=== PATIENT | female | born 1945 | race Caucasian/White ===

== ENCOUNTER 2017-03-15 07:46 | Day surgery (SDC) | payer MEDICARE, OTHER ==
[~2017-03-15] VITALS: Ht 152.4 cm; Wt 94.8 kg
[2017-03-15 09:04] LABS: BASOPHILS 0.4 % (0-2); EOSINOPHILS 1.9 % (0-7); HEMATOCRIT 40.1 % (36.0-48.0); HEMOGLOBIN 12.2 g/dL (12-16); IMMATURE GRANULOCYTES 0.3 % (0-5); LYMPHOCYTES 18.4 % (15-50); MCH 30.3 pg (26.0-34.0); MCHC 30.4 g/dL (31.0-37.0); MCV 99.8 fL (80.0-100.0); MONOCYTES 14.2 % (2-11); NEUTROPHILS 64.8 % (40-80); PLATELET COUNT 295 10x3/uL (130-400); RBC 4.02 10x6/uL (4.00-5.40); WBC 8.9 10x3/uL (4.8-10.8)
[2017-03-15 09:14] LABS: INR 1.26 (0.85-1.17); PROTIME 15.7 SECONDS (11.6-15.0)
[2017-03-15 09:21] LABS: ANION GAP 14.6 mmol/L (8-16); CALCIUM 9.5 mg/dL (8.5-10.1); CARBON DIOXIDE 27.7 mmol/L (21.0-32.0); CREATININE - SERUM 3.1 mg/dL (0.6-1.3); POTASSIUM - SERUM 3.3 mmol/L (3.5-5.1)
[2017-03-15] MEDS ORDERED: GABAPENTIN100 MG PO ×2 (14:03→14:04)
[2017-03-15] MEDS ORDERED: BUMEX 1 MG TAB1 MG PO (14:04)
[2017-03-15] MEDS ORDERED: ZYLOPRIM100 MG PO (14:04)
[2017-03-15] MEDS ORDERED: ALDACTONE50 MG PO (14:05)
[2017-03-15] MEDS ORDERED: LEVOTHYROXINE100 MCG PO (14:05)
[2017-03-15] MEDS ORDERED: PROTONIX20 MG PO (14:07)
[2017-03-15] MEDS ORDERED: LASIX80 MG PO (14:07)
[2017-03-15] MEDS ORDERED: PLAVIX75 MG PO (14:07)
[2017-03-15] MEDS ORDERED: PRAVASTATIN SOD10 MG PO (14:08)
[2017-03-15 14:12] VITALS: Ht 152.4 cm; Wt 94.8 kg
--- NOTE | 2017-03-15 22:37 | NUR ---
2231 - ATTEMPTED TO CALL REPORT TO TRANSPORT PT. "RIVKA" ANSWERED PHONE, STATED THAT THERE IS "NO WAY" THE NURSE FOR HER ROOM WAS ABLE TO TAKE REPORT, AND THAT NO ONE ELSE IS ABLE TO TAKE REPORT. STATED SHE WILL ADVISE WHEN SOMEONE IS AVAILABLE TO RECEIVE REPORT AND PT.
--- NOTE | 2017-03-15 23:28 | NUR ---
RECIEVED TO ROOM 2101 FROM O.R. PT A&O. O2 AT 6 LITER VIA OXIMIZER. RESPERATIONS EVEN. IV TO RIGHT FOREARM SL. SITE CLEAN AND DRY. LEFT ARM IN SLING, DRSG TO LEFT ARM FROM FISTULA CREATION CREATION C/D/I. REPOSITIONED IN BED FOR COMFORT. BED LOW, CL IN REACH. RECLINER CHAIR TAKEN TO ROOM FOR , NO OTHER NEEDS, AT THIS TIME.
--- NOTE | 2017-03-15 23:39 | NUR ---
PT RESTING WELL WITHOUT C/O OR DISTRESS NOTED. NO CHANGES NOTED IN ASSESSMENT. CALL LIGHT WITHIN REACH. WILL CONT TO MONITOR.
[2017-03-16 00:59] VITALS: BP 121/62
--- NOTE | 2017-03-16 01:51 | NUR ---
UP WITH ASSIST TO BSC. EXTRA PILLOWS GIVEN TO FOR COMFORT.
--- NOTE | 2017-03-16 07:10 | NUR ---
PT SITTING UP IN BED C/O OXIMIZER ON, PT IS SAT AT 98% ON 6L OXIMIZER. TURNED PT DOWN TO 5L, PT IS NORMALLY ON 2L NC AT HOME. WILL CONT TO MONITOR. AT BEDSIDE
--- NOTE | 2017-03-16 07:35 | NUR ---
PAGED DELMER TO SEE ABOUT RI HOME.
--- NOTE | 2017-03-16 07:41 | NUR ---
PT IS WEANED DOWN TO 2L NC SATS ARE 100%
[2017-03-16 08:35] VITALS: BP 138/63
--- NOTE | 2017-03-16 09:29 | NUR ---
WENT OVER DC INSTRUCTIONS WITH PT PT VERBALIZES UNDERSTANDING. DC PIV WITH CATH TIP INTACT. HELPED PT GET DRESSED. GIVEN PT SCRIPT FOR NORCO. WHEELED PT DOWNSTAIRS. PICKED HER UP AND PT IS HOOKED UP TO HOME O2
== END 2017-03-16 09:35 | disposition home or self-care (01) ==
LOC: D.OPS 07:46 → D.M2 22:54 → D.OPS 03-16 09:35
PROVIDERS: Surgery
DX: N18.6 End stage renal disease (principal); Z99.2 Dependence on renal dialysis; Z01.812 Encounter for preprocedural laboratory examination

== ENCOUNTER 2017-03-21 04:12 | Inpatient (IN) | payer MEDICARE, OTHER ==
[~2017-03-21] VITALS: Ht 152.4 cm; Wt 83.9 kg
--- NOTE | ~2017-03-21 | DS ---
PATIENT:ALMA SHELDON :43 MEDICAL RECORD: [id number] DISCHARGE SUMMARY ADMISSION DATE: 03/21/17 DISCHARGE DATE: 03/22/17 HOSPITAL COURSE: A 71-year-old female admitted with pulmonary edema, fever, loose stools, nausea and emesis. She wanted to go home yesterday, but is insisting on going home today and we will have to change her Zosyn over to Augmentin and her IV Flagyl with a p.o. Flagyl. We will continue vancomycin on her dialysis days as well. I am even have to replace her potassium. Her is not here and we may end up changing our minds depending on Alma. All review of systems are negative. She is insistent that she is feeling fine and at baseline. Blood pressure is 132/72, 72 heart rate, 18 respiratory rate. She is afebrile now with a temperature of 98.4. Nurses' last blood pressure was 120/53. She is alert and oriented times 3. Normocephalic with nasal cannula O2. Chest is regular rhythm. Lungs are grossly clear. Abdomen is nontender. Her leg wounds are stable. She has right IJ tunneled catheter and radiocephalic fistla with no significant swelling or erythema. Lab is consistent with ESRD, although her potassium is 2.9. We will replace her potassium today and we did discuss increasing the potassium in her diet. She does need another dose of vancomycin and we will get a gram on dialysis for the next week until we reevaluate her and she is on Saturday and dialysis. I will be seeing her this coming of next week. She is to return to the hospital for any problems. Her home medications are the same except we have added Augmentin 500 twice a day for 6 days, Flagyl 250 t.i.d. She will receive a gram of vancomycin and Flagyl for 6 days. Her home medication dose of levothyroxine remains the same as well as her Neurontin and her other home medications which also include Protonix. Continue with renal diet and fluid restriction except for potassium, which will follow. Follow up with [facility] dialysis and return to the hospital for any reasons. More than 30 minutes was spent with the dictation, 42 actually. TRANSINT:[id number] Voice Confirmation ID: [id number] DOCUMENT ID: [id number] KELSEY LARA MD CC: [id number] DICTATION DATE: 03/22/17 0757 [facility]: 03/23/17 0042 DIS IN 03/22/17 [place] [id number] [place] [id number]
[~2017-03-21 04:12] MED LIST: ALDACTONE50 MG PO; BUMEX 1 MG TAB1 MG PO; GABAPENTIN100 MG PO; LASIX80 MG PO; LEVOTHYROXINE100 MCG PO; PLAVIX75 MG PO; PRAVASTATIN SOD10 MG PO; PROTONIX20 MG PO; ZYLOPRIM100 MG PO
--- NOTE | 2017-03-21 06:45 | NUR ---
RECEIVED VIA AMBULANCE TO ROOM. ON 2L PER NC. SALINE LOCK SEEN TO RIGHT HAND. NEW AVF SEEN WITH DRY INTACT DRESSINGS TO LEFT UPPER ARM AND LEFT WRIST AREA. DENIES NEEDS AT PRESENT TIME, WILL ADMIT. BED ALARM IS SET.
[2017-03-21 07:41] VITALS: BP 139/62; BMI 36.2
[2017-03-21 07:46] VITALS: BP 139/62; BMI 36.2
[2017-03-21 08:00] VITALS: BP 139/62
--- NOTE | 2017-03-21 09:37 | NUR ---
TO DIALYSIS VIA BED.
[2017-03-21 13:13] VITALS: Ht 152.4 cm; Wt 83.9 kg
--- NOTE | 2017-03-21 13:57 | NUR ---
RETURNS FROM DIALYSIS, ALL SHE WANTS IS HOT TEA, NOTHING TO EAT. FAMILY AT BEDSIDE.
--- NOTE | 2017-03-21 14:03 | NUR ---
HD TREATMENT COMPLETED, NET FLUID REMOVAL OF 3000ML, OTHER THAN SOME HAND CRAMPING AND NAUSEA, TOLERATED OK. BLOOD RETURNED, LINES FLUSHED, HEPARIN DWELLING.
[2017-03-21 16:36] VITALS: BP 99/48
[2017-03-21 19:00] VITALS: BP 147/54
--- NOTE | 2017-03-21 19:52 | NUR ---
ENGINEER RF DEPLOYMENT BED SIDE, PT INCONTINENT OF BOWEL.
--- NOTE | 2017-03-21 20:01 | NUR ---
SPOKE WITH NURSE FROM [facility], UP DATE GIVEN WITH PT APPROVAL.
[2017-03-22] VITALS: BP 114/48
--- NOTE | 2017-03-22 01:00 | NUR ---
CALL LIGHT IN REACH, WILL CONTINUE WITH PLAN OF CARE.
[2017-03-22 04:00] VITALS: BP 120/53
[2017-03-22 05:56] LABS: BASOPHILS 0.9 % (0-2); EOSINOPHILS 2.2 % (0-7); HEMATOCRIT 34.4 % (36.0-48.0); HEMOGLOBIN 10.3 g/dL (12-16); IMMATURE GRANULOCYTES 0.4 % (0-5); LYMPHOCYTES 23.5 % (15-50); MCH 30.7 pg (26.0-34.0); MCHC 29.9 g/dL (31.0-37.0); MCV 102.4 fL (80.0-100.0); MEAN PLATELET VOLUME 10.8 fL (7.4-10.4); MONOCYTES 15.8 % (2-11); NEUTROPHILS 57.2 % (40-80); RBC 3.36 10x6/uL (4.00-5.40); RDW 17.6 % (11.5-14.5)
[2017-03-22 05:58] LABS: PLATELET COUNT 234 10x3/uL (130-400)
[2017-03-22 07:35] LABS: ANION GAP 13.8 mmol/L (8-16); CALCIUM 8.2 mg/dL (8.5-10.1); CARBON DIOXIDE 26.1 mmol/L (21.0-32.0); CREATININE - SERUM 2.7 mg/dL (0.6-1.3); PHOSPHOROUS 3.5 mg/dL (2.5-4.9); VANCOMYCIN - RANDOM 5.2 ug/mL (10.0-20.0)
[2017-03-22 07:41] LABS: POTASSIUM - SERUM 2.9 mmol/L (3.5-5.1)
--- NOTE | 2017-03-22 07:50 | NUR ---
0745-LAB TO CALL WITH CRITICAL POTASSIUM 2.9. CALL PLACED TO RENAL.
[2017-03-22 08:11] VITALS: BP 111/47
[2017-03-22] MEDS ORDERED: AUGMENTIN 500-11 TA1 PO (09:26)
[2017-03-22] MEDS ORDERED: FLAGYL250 MG PO (09:26)
--- NOTE | 2017-03-22 10:08 | NUR ---
Patient Name: DYLAN SHELDON Admission Status: Elective Accout number: [id number] Admission Date: 03-21-2017 : 1945 Admission Diagnosis: Attending: MICHAEL Current LOS: 1 Anticipated DC Date: 03-22-2017 Planned Disposition: Home with Home Health Primary Insurance: MEDICARE A & B PLANNED EXTERNAL PROVIDER: [facility] Discharge Planning Comments: * Is the patient Alert and Oriented? Yes 0 * How many steps to enter\exit or inside your home? NONE 0 * PCP DR. CUETO IN [place] 0 * Pharmacy [facility] [place] 0 * Preadmission Environment Home with Family 0 * ADLs Independent 0 * Equipment Nebulizer Oxygen Walker Wheelchair 0 * Other Equipment HOME AND PORTABLE OXYGEN [facility] - MEDICAL EQUIPMENT PROVIDER PREFERENCE 0 * List name and contact numbers for known caregivers / representatives who currently or will assist patient after discharge: MARITZA SHELDON, SPOUSE, 0 * Community resources currently utilized Home Health Other 0 * Please name any agencies selected above. [facility], [facility], T/T/S, 1030AM, [facility] 0 * Additional services required to return to the preadmission environment? No 0 * Can the patient safely return to the preadmission environment? Yes 0 * Has this patient been hospitalized within the prior 30 days at any hospital? No 0 CM MET WITH PT IN ROOM TO DISCUSS DISCHARGE PLANNING AND NEEDS. PT REPORTS LIVING AT HOME INDEPENDENTLY WITH HER SPOUSE. PT HAS WALKER THAT SHE USES, A WHEELCHAIR THAT SHE DOES NOT USE, OXYGEN THAT SHE USES NEEDED AND A NEBULIZER FROM [facility], [place]. PT HAS [facility] AT HOME. PT HAS OUTPATIENT DIALYSIS ON T/T/S SCHEDULE, 1030AM, [facility]. CM DISCUSSED AVAILABILITY OF HOME HEALTH, REHAB SERVICES AND MEDICAL EQUIPMENT. PT DENIES DISCHARGE NEEDS, REPORTS HER [facility] WILL PICK HER UP FOR DISCHARGE HOME TODAY. IMPORTANT MESSAGE FROM MEDICARE PROVIDED AND EXPLAINED. CM CALLED [employer], , SPOKE TO [place] FOR RESUMPTION FOR HOME HEALTH, FAXED HOSPITAL STAY INFORMATION AND DISCHARGE INFORMATION TO [facility] AT [phone]. Ios Architect: Dong Doty
--- NOTE | 2017-03-22 11:51 | NUR ---
SALINE LOCK TO RIGHT HAND REMOVED WITH CATH TIP INTACT. WILL BE DISCHARGED PAST LUNCH. WILL REVIEW PAPERWORK AT THAT TIME.
--- NOTE | 2017-03-22 12:53 | NUR ---
VERBAL AND WRITTEN INSTRUCTIONS GIVEN TO PATIENT. DISCHARGED HOME VIA WHEELCHAIR.
== END 2017-03-22 12:59 | disposition home health service (06) | DRG 314 ==
LOC: D.MS 04:12 → D.M2 06:37
PROVIDERS: ADMIT Internal Medicine Nephrology
PROC: 5A1D60Z (ICD-10-PCS; principal; 2017-03-21)
DX: T82.7XXA Infection and inflammatory reaction due to other cardiac and vascular devices, implants and grafts, initial encounter (principal); N18.6 End stage renal disease; S81.802A Unspecified open wound, left lower leg, initial encounter; S81.801A Unspecified open wound, right lower leg, initial encounter; X58.XXXA Exposure to other specified factors, initial encounter; E11.22 Type 2 diabetes mellitus with diabetic chronic kidney disease; E11.40 Type 2 diabetes mellitus with diabetic neuropathy, unspecified; Z99.2 Dependence on renal dialysis; D63.1 Anemia in chronic kidney disease; J44.9 Chronic obstructive pulmonary disease, unspecified; E83.39 Other disorders of phosphorus metabolism; E87.6 Hypokalemia; E03.9 Hypothyroidism, unspecified

== ENCOUNTER 2017-03-29 08:35 | Day surgery (SDC) | payer MEDICARE, OTHER ==
[~2017-03-29] VITALS: Ht 152.4 cm; Wt 94.8 kg
[~2017-03-29 08:35] MED LIST changes: +AUGMENTIN 500-11 TA1 PO; +FLAGYL250 MG PO
[2017-03-29 10:07] LABS: BASOPHILS 0.4 % (0-2); EOSINOPHILS 1.5 % (0-7); HEMOGLOBIN 11.9 g/dL (12-16); IMMATURE GRANULOCYTES 0.6 % (0-5); LYMPHOCYTES 21.9 % (15-50); MCH 30.7 pg (26.0-34.0); MCHC 30.5 g/dL (31.0-37.0); MCV 100.5 fL (80.0-100.0); MEAN PLATELET VOLUME 11.1 fL (7.4-10.4); MONOCYTES 14.9 % (2-11); NEUTROPHILS 60.7 % (40-80); RBC 3.88 10x6/uL (4.00-5.40); RDW 17.3 % (11.5-14.5); WBC 9.1 10x3/uL (4.8-10.8)
[2017-03-29 10:08] LABS: PLATELET COUNT 318 10x3/uL (130-400)
[2017-03-29 10:18] LABS: ANION GAP 11.8 mmol/L (8-16); CALCIUM 8.8 mg/dL (8.5-10.1); CARBON DIOXIDE 27.4 mmol/L (21.0-32.0); CREATININE - SERUM 2.4 mg/dL (0.6-1.3); INR 1.31 (0.85-1.17); POTASSIUM - SERUM 3.2 mmol/L (3.5-5.1); PROTIME 16.2 SECONDS (11.6-15.0)
[2017-03-29 10:19] LABS: APTT 40.9 SECONDS (22.8-39.4)
[2017-03-29] MEDS ORDERED: ZOVIRAX400 MG PO (13:16)
[2017-03-29] MEDS ORDERED: COREG6.25 MG PO (13:19)
[2017-03-29] MEDS ORDERED: ISOSORBIDE MONO30 M1 PO (13:20)
[2017-03-29 13:31] VITALS: BP 137/61; Ht 152.4 cm; Wt 94.8 kg
--- NOTE | 2017-03-29 14:33 | NUR ---
0845-RECD TO OPS, PLACED IN WAITING ROOM. SURGERY SCHEDULED FOR 1400 AND NO ROOMS AVAILABLE AT THIS TIME. 1000-TO ROOM 2504. PATIENT STATES JUST GOT THE SHINGLES 2 DAYS AGO. INFECTION CONTROL NURSE NOTIFIED AND PATIENT PLACED IN CONTACT ISOLATION. DR STEELE AND SURGERY NOTIFIED. 1045-INFECTION CONTROL NURSE, YESY OTERO RN HERE. RECOMMENDS [employer] PRECAUT[employer]. SECURITY SYSTEMS INSTALLER CONTACTED FOR NEGATIVE PRESSURE ROOM. NONE AVAILABLE AT PRESENT. 1330-ROOM 2101 AVAILABLE, STATES CAN GO THERE POST-OP.
[2017-03-29] MEDS ORDERED: PLAVIX75 MG PO (18:41)
[2017-03-29] MEDS ORDERED: DOXYCYCLINE HY100 M2 PO (18:42)
[2017-03-29] MEDS ORDERED: MUPIROCIN22 GM TOPICAL (18:43)
[2017-03-29] MEDS ORDERED: HYDROCODON-ACE1 EAC7 PO (18:44)
--- NOTE | 2017-03-29 19:54 | NUR ---
PT RECEIVED TO FLOOR VIA BED AWAKE, ALERT, ORIENTED, AT BEDSIDE. PT DENIES PAIN, NAUSEA, DIZZINESS, POST V/S WNL. D/C ORDERS REVIEWED WITH PT AND , QUESTIONS ANSWERED. PT TAKEN VIA WHEELCHAIR TO FRONT DOOR.
== END 2017-03-29 20:02 | disposition home or self-care (01) ==
LOC: D.OPS 08:35 → D.M2 19:00 → D.OPS 20:02
PROVIDERS: Surgery
DX: T82.868A Thrombosis due to vascular prosthetic devices, implants and grafts, initial encounter (principal); T82.858A Stenosis of other vascular prosthetic devices, implants and grafts, initial encounter; T81.31XA Disruption of external operation (surgical) wound, not elsewhere classified, initial encounter; T81.4XXA Infection following a procedure, initial encounter; N18.6 End stage renal disease; Z99.2 Dependence on renal dialysis; D63.1 Anemia in chronic kidney disease; R53.81 Other malaise; B02.9 Zoster without complications

== ENCOUNTER 2017-04-12 08:16 | Day surgery (SDC) | payer MEDICARE, OTHER ==
[~2017-04-12] VITALS: Ht 152.4 cm; Wt 94.8 kg
[~2017-04-12 08:16] MED LIST changes: +COREG6.25 MG PO; +DOXYCYCLINE HY100 M2 PO; +HYDROCODON-ACE1 EAC7 PO; +ISOSORBIDE MONO30 M1 PO; +MUPIROCIN22 GM TOPICAL; +ZOVIRAX400 MG PO
[2017-04-12] MEDS ORDERED: NOVOLIN 70/30 110 ML SC (12:31)
[2017-04-12] MEDS ORDERED: RENAGEL400 MG PO (12:32)
[2017-04-12] MEDS ORDERED: FISH OIL 1,0001 CA1 PO (12:33)
[2017-04-12 12:40] VITALS: Ht 152.4 cm; Wt 94.8 kg
[2017-04-12 12:54] LABS: BASOPHILS 0.8 % (0-2); EOSINOPHILS 3.1 % (0-7); HEMATOCRIT 40.1 % (36.0-48.0); HEMOGLOBIN 12.3 g/dL (12-16); IMMATURE GRANULOCYTES 0.2 % (0-5); LYMPHOCYTES 28.9 % (15-50); MCH 31.4 pg (26.0-34.0); MCHC 30.7 g/dL (31.0-37.0); MCV 102.3 fL (80.0-100.0); MEAN PLATELET VOLUME 10.3 fL (7.4-10.4); MONOCYTES 15.1 % (2-11); NEUTROPHILS 51.9 % (40-80); RBC 3.92 10x6/uL (4.00-5.40); RDW 17.9 % (11.5-14.5); WBC 6.5 10x3/uL (4.8-10.8)
[2017-04-12 13:00] LABS: ANION GAP 11.5 mmol/L (8-16); CALCIUM 8.9 mg/dL (8.5-10.1); CREATININE - SERUM 2.1 mg/dL (0.6-1.3); POTASSIUM - SERUM 3.5 mmol/L (3.5-5.1)
[2017-04-12 13:05] LABS: APTT 35.9 SECONDS (22.8-39.4); INR 1.25 (0.85-1.17); PROTIME 15.6 SECONDS (11.6-15.0)
[2017-04-12 13:10] LABS: PLATELET COUNT 175 10x3/uL (130-400)
[2017-04-12] MEDS ORDERED: ELIQUIS2.5 MG PO (17:32)
--- NOTE | 2017-04-12 20:13 | NUR ---
1725 BACK FROM FISTULOGRAM AND THROMBECTOMY. RESP EVEN AND NONLABORED LEFT UPPER ARM DRESSING C/D/I NO BLEEDING GOOD THRILL.
--- NOTE | 2017-04-12 20:20 | NUR ---
1755 UP AND VOIDED AND THAN UP IN WHEELCHAIR. LEFT ARM DRESSING C/D/I NO BLEEDING BRUIT PRESENT.
--- NOTE | 2017-04-12 20:21 | NUR ---
1809 DR[address] STEELE TALKED TO DR. WEINSTEIN CALLED ABOUT HAVING TO DECLOT ACCESS RECEIVED HEPARIN AND WILL BE STRATING ELOQUIS TWICE DAILY IN ADDITION TO HER PLAVIX. DR. DIAS TOLD DR. WEINSTEIN HE GAVE HER A SCRIPT FOR ELOQUIS TWICE DAILY 30 DAY SCRIPT AND HE STATED OKAY.
--- NOTE | 2017-04-12 20:25 | NUR ---
1830 WENT OVER DISCHARGE INSTRUCTIONS ANDD GAVE ELOQUIS PRIOR TO DISCHARGE AND TOLD PATIENT AND FAMILY TO CONTINUE PLAVIX AND ELOQUIS AND TO FOLLOW UP WITH DR. STEELE NEXT WEEK AND ASK DIALYSIS HOW LONG NEEDS TO BE ON THE ELOQUIS AND PLAVIX, VERBALLY UNDERSTOOD.
--- NOTE | 2017-04-12 20:27 | NUR ---
1835 TO HOME VIA W/C
--- NOTE | 2017-04-18 17:00 | OP ---
PATIENT NAME: DYLAN SHELDON MEDICAL RECORD: [id number] :43 LOCATION:[facility] ADMISSION DATE: SURGEON: BONNIE STEELE MD OPERATION DATE: 04/12/17 SURGEON: Bonnie Steele MD REFERRING PHYSICIAN: Dr. 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 OPERATION PERFORMED: ANESTHESIA: Local 1% Lidocaine without epinephrine and monitoring with IV sedation per SUNNY and Dr. Kerns. PREOPERATIVE NOTE: The patient is a rather debilitated 71-year-old obese lady with end-stage renal disease now catheter dependent for hemodialysis access. Just a few weeks ago I implanted a 4 to 7 taper PTFE graft in the left upper extremity with origin from the axillary artery and termination in the proximal basilic vein immediately distal to the confluence with brachial vein to form the axial vein. This thrombosed early and I performed one open thrombectomy however, it thrombosed again within just a couple of days. The graft has never been utilized for dialysis. She has returned to the hospital today as an outpatient with plans to declot it once again. The patient takes Plavix daily already. There is no other history of hypercoagulable state. PROCEDURE: Monitored by anesthesia, but with just limited if any sedation, she was placed on the operating table in the supine position and prepped and draped in a sterile manner. Local anesthetic was used as needed, 1% Lidocaine without epinephrine. The graft was accessed with ultrasound guidance and micropuncture technique twice. 6-Liberian introducer sheaths were placed, directed in retrograde and antegrade directions, and overlapping in the middle or midbody of the graft. I advanced a Glidewire and Vantage catheter through the arterial limb of the graft and through the arterial anastomosis. I then performed a pullback angiogram of the axillary artery and the graft. There was a long stenosis due to thrombus in the 4 millimeter tapered segment. This was subsequently dilated with a 4 millimeter angioplasty balloon with full effacement. AngioJet device was then used to lyse and remove thrombus and debris from the arterial limb of the graft. Repeated contrast injection demonstrated some residual thrombus which was pulled back with a 4-Liberian Sharon embolectomy catheter. Repeated contrast injection looked great with a very good size match between the axillary artery and the 4 millimeter section of PTFE. There was no evidence of residual arterial anastomotic stenosis. I then lysed the thrombus in the body and venous limb of the graft and performed angiography and noted some persistent narrowing of the proximal graft to vein anastomosis. This is also I think due to organizing thrombus. This was dilated with a 7 millimeter OPERATIVE REPORT [id number] BLUE,DYLAN diameter angioplasty balloon which was also used to macerate thrombus and dilate the body of the graft. Arterial pulsation and palpable thrill was restored in the graft and repeated contrast injections revealed satisfactory flow without any residual arterial or venous anastomotic stenosis or JA stenosis. The patient was given 5000 units of heparin at the beginning of the procedure and this was not reversed at the termination. The 6-Liberian sheaths were removed and the puncture sites treated with [id number]-[id number] 4-0 Prolene sutures and some direct pressure. They were subsequently dressed with Avitene Ultrafoam, Tegaderm, and Cavilon skin prep. The recent counter incision which I had used also for access for the open thrombectomy earlier this week was dressed with some bacitracin ointment and sliver impregnated calcium alginate and Tegaderm. The patient tolerated the procedure relatively well, at least did not require a great deal of sedation as I hope to avoid repeating anesthesia on her this often as she has trouble waking up. Also I think she is a risk for falling. I plan for her to be discharged to home today and I am starting her on Eliquis 2.5 milligrams twice a day and she will also continue her daily Plavix. We will make certain that this is okay with Dr. June and that the length of treatment with both drugs will be subsequently finally decided by him. Admittedly the patient is a increased risk for falling and therefore bleeding complications associated with this aggressive anticoagulation. I have discussed this with the patient and also with her . I will be seeing her back in my office next week. Until then she should continue to have dialysis via her tunneled catheter. Blood loss during the procedure was about 5 milliliters, non replaced. All sponges, instruments, and needles were accounted for. No drain was used. No surgical specimen submitted for histopathology. BONNIE STEELE MD at 1700 CC: KELSEY JUNE MD [id number] DICTATION DATE: 04/12/17 1400 LIVE GAMES DEALER: DM 04/14/17 0939 [facility] [place] 04/12/17 [place] [id number] [facility] [address]
== END 2017-04-12 18:38 | disposition home or self-care (01) ==
LOC: D.OPS 08:16
PROVIDERS: Internal Medicine Nephrology
DX: T82.868A Thrombosis due to vascular prosthetic devices, implants and grafts, initial encounter (principal); N18.6 End stage renal disease; Z99.2 Dependence on renal dialysis; R53.81 Other malaise; E66.9 Obesity, unspecified; Z79.02 Long term (current) use of antithrombotics/antiplatelets; Z01.812 Encounter for preprocedural laboratory examination

== ENCOUNTER 2017-08-16 05:12 | Day surgery (SDC) | payer MEDICARE, OTHER ==
[2017-08-15 14:35] LABS: BASOPHILS 0.4 % (0-2); EOSINOPHILS 2.4 % (0-7); HEMATOCRIT 43.2 % (36.0-48.0); HEMOGLOBIN 13.9 g/dL (12-16); IMMATURE GRANULOCYTES 0.3 % (0-5); LYMPHOCYTES 34.4 % (15-50); MCH 32.3 pg (26.0-34.0); MCHC 32.2 g/dL (31.0-37.0); MCV 100.5 fL (80.0-100.0); MEAN PLATELET VOLUME 10.9 fL (7.4-10.4); NEUTROPHILS 48.5 % (40-80); PLATELET COUNT 233 10x3/uL (130-400); RDW 13.9 % (11.5-14.5); WBC 7.1 10x3/uL (4.8-10.8)
[2017-08-15 14:44] LABS: INR 1.02 (0.85-1.17); PROTIME 13.2 SECONDS (11.6-15.0)
[2017-08-15 14:45] LABS: APTT 28.3 SECONDS (22.8-39.4)
[2017-08-15 14:59] LABS: ANION GAP 16.7 mmol/L (8-16); CARBON DIOXIDE 26.4 mmol/L (21.0-32.0); CREATININE - SERUM 3.5 mg/dL (0.6-1.3); POTASSIUM - SERUM 4.1 mmol/L (3.5-5.1)
[~2017-08-16] VITALS: Ht 152.4 cm; Wt 88.9 kg
[~2017-08-16 05:12] MED LIST changes: +COREG 3.1253.125 MG PO; -COREG6.25 MG PO; +ELIQUIS2.5 MG PO; +FISH OIL 1,0001 CA1 PO; +NEURONTIN600 MG PO; +NOVOLIN 70/30 110 ML SC; +NOVOLIN R100 U/ML SQ; +RENA-VITE TABL0.8 MG PO; +RENAGEL400 MG PO; +TUMS500 MG PO
[2017-08-16 06:56] VITALS: BP 125/40; Ht 152.4 cm; Wt 88.9 kg
[2017-08-16] MEDS ORDERED: HYDROCODON-ACE1 EAC7 PO (10:04)
--- NOTE | 2017-08-16 14:26 | NUR ---
1100 IV DC WITH CATHER TIP INTACT
--- NOTE | 2017-08-18 13:07 | OP ---
PATIENT NAME: DYLAN HONEYCUTT MEDICAL RECORD: [id number] :43 LOCATION:[facility] ADMISSION DATE: SURGEON: BONNIE STEELE MD DATE OF OPERATION: 08/16/2017 REFERRING PHYSICIANS: Dr. Weinstein and Dr. June. PREOPERATIVE DIAGNOSIS: End-stage renal disease, on hemodialysis, N18.6 and Z99.2. POSTOPERATIVE DIAGNOSIS: End-stage renal disease, on hemodialysis, N18.6 and Z99.2. OPERATION PERFORMED: Creation of a right brachial artery to basilic vein Manny type AV fistula as a planned preparatory operation for a subsequent procedure to create a brachial artery to translocated basilic vein AV fistula. SURGEON: Bonnie Steele MD ANESTHESIA: General with LMA per MAILHOUSE OPERATOR PREOPERATIVE NOTE: Ms. Honeycutt is a 72-year-old white female with end-stage renal disease, who was begun on dialysis with a tunneled catheter. Prior attempts to create access in her left arm including an AV graft were unsuccessful. She is brought back to the operating room today to try again on the right side. Under anesthesia in supine position, the patient was prepped and draped in a sterile manner. A Jerzy drain was applied to the upper arm as a venous tourniquet and nitroglycerin paste was applied to the intact skin of the forearm and arm. The patient's arm was then examined with ultrasound and I found that she did indeed have a very satisfactory basilic vein and then amply large brachial artery for creation of a fistula. There is a cephalic vein present as well, which could be used, but the basilic vein is larger and I think represents a better opportunity and a brachiobasilic AV fistula can be created in this instance without burning bridges. I made a transverse incision, really hockey stick shaped incision across the forearm and directed then upwards towards the arm. Subcutaneous tissues were divided with electrocautery. The median cubital branch or tributary of the basilic vein was exposed and treated with topical papaverine. It was about 3 mm to 3.5 mm in diameter and looked very acceptable for use for the fistula. The brachial artery was then exposed at this level and controlled with Silastic loops. It was moderately heavily diseased with atherosclerosis with some [id number] calcifications. It was pulsatile and I thought soft enough to suture and it was of good size, I thought probably would have more than enough flow. The vein was closed distally with Hemoclips. It was then transected and beveled and then flushed with heparin and saline solution, dilated hydrostatically and then clamped with an atraumatic vascular clamp. The artery was occluded with doubly looped Silastic tapes. An arteriotomy was made about 4 mm in length. The artery actually did require a vascular clamp up to occluded. The artery was flushed proximally and distally with heparinized saline and the vein was then anastomosed end of vein to side of artery with running 7-0 Prolene. Upon completion of the anastomosis and release of the occluding loops and clamps, excellent flow was immediately established in this new fistula. The arm was examined again with Duplex ultrasound and good color-flow continuous OPERATIVE REPORT [id number] BLUE,DYLAN pulsatile signals were noted throughout the basilic vein from the antecubital level to the axilla. There was good pulsatile Doppler flow in the brachial artery distal to the anastomosis. It was of a high resistance nature, indicating forward flow towards the hand and there was continuous low resistance flow in the brachial artery proximal to the arterial anastomosis. The wound irrigated with gentamicin solution, was then also infiltrated with 0.25% Marcaine without epinephrine and the wound was closed without the use of a drain approximating subcutaneous tissues with interrupted inverted 3-0 Vicryl and skin with running intracuticular 4-0 Monocryl and Dermabond glue. The incision was further closed, sealed and dressed with Maxorb Ag, Tegaderm and Cavilon skin prep. She was awakened and in stable condition returned to the recovery room. Blood loss during the operation was none. All sponges, instruments and needles were accounted for. No drain was used and no surgical specimen was submitted for histopathology. PLAN: The patient will be discharged to home today. She is given a prescription for Lavalette 5/325, #10. She can take one p.o. q.4-6 hours p.r.n. pain. An appointment will be scheduled for her to return to see me in my office next week. She can leave the original operative dressing intact and in place until that time, remove it and check her wound in the office. I will plan to return her to the operating room in 2-4 weeks for creation of the brachial artery to translocated basilic vein AV fistula. TRANSINT:[id number] Voice Confirmation ID: [id number] DOCUMENT ID: [id number] BONNIE STEELE MD at 1307 CC: KELSEY JUNE MD and RERE WEINSTEIN MD [id number] DICTATION DATE: 08/16/17 1020 SLICE CUTTING MACHINE OPERATOR: 08/16/17 1210 [facility] [place] 08/16/17 [facility] [address] [place] [id number]
== END 2017-08-16 11:30 | disposition home or self-care (01) ==
LOC: D.OPS 05:12
PROVIDERS: Surgery
DX: E11.22 Type 2 diabetes mellitus with diabetic chronic kidney disease (principal); I12.0 Hypertensive chronic kidney disease with stage 5 chronic kidney disease or end stage renal disease; N18.6 End stage renal disease; Z99.2 Dependence on renal dialysis; K21.9 Gastro-esophageal reflux disease without esophagitis; Z95.1 Presence of aortocoronary bypass graft; Z01.812 Encounter for preprocedural laboratory examination

== ENCOUNTER 2017-09-20 05:15 | Day surgery (SDC) | payer MEDICARE, OTHER ==
[2017-09-19 13:31] LABS: BASOPHILS 0.4 % (0-2); EOSINOPHILS 1.8 % (0-7); HEMATOCRIT 40.2 % (36.0-48.0); HEMOGLOBIN 12.8 g/dL (12-16); IMMATURE GRANULOCYTES 0.2 % (0-5); LYMPHOCYTES 23.7 % (15-50); MCH 32.5 pg (26.0-34.0); MCHC 31.8 g/dL (31.0-37.0); MEAN PLATELET VOLUME 11.1 fL (7.4-10.4); MONOCYTES 12.4 % (2-11); NEUTROPHILS 61.5 % (40-80); PLATELET COUNT 223 10x3/uL (130-400); RBC 3.94 10x6/uL (4.00-5.40); RDW 14.5 % (11.5-14.5); WBC 8.4 10x3/uL (4.8-10.8)
[2017-09-19 13:37] LABS: ANION GAP 16.8 mmol/L (8-16); CALCIUM 8.9 mg/dL (8.5-10.1); CARBON DIOXIDE 27.2 mmol/L (21.0-32.0); CREATININE - SERUM 3.5 mg/dL (0.6-1.3)
[2017-09-19 14:06] LABS: APTT 28.3 SECONDS (22.8-39.4)
[2017-09-19 14:07] LABS: INR 0.94 (0.85-1.17); PROTIME 12.2 SECONDS (11.6-15.0)
[~2017-09-20] VITALS: Ht 152.4 cm; Wt 90.3 kg
[2017-09-20 07:34] VITALS: BP 113/38; Ht 152.4 cm; Wt 90.3 kg
--- NOTE | 2017-09-20 08:45 | NUR ---
SLING TO RIGHT ARM R/T ANESTHESIA BLOCK, SEE ANESTHESIA NOTES
--- NOTE | 2017-10-11 15:11 | OP ---
PATIENT NAME: DYLAN HONEYCUTT MEDICAL RECORD: [id number] :43 LOCATION:[facility] ADMISSION DATE: SURGEON: BONNIE STEELE MD DATE OF OPERATION: 09/20/2017 REFERRED BY: Dr. Kelsey June. PREOPERATIVE DIAGNOSES: End-stage renal disease with multiple prior dialysis access failures and general debility, dependence on hemodialysis. POSTOPERATIVE DIAGNOSES: End-stage renal disease with multiple prior dialysis access failures and general debility, dependence on hemodialysis. OPERATION PERFORMED: Planned second stage and construction of a right brachial artery to translocated basilic vein AV fistula. SURGEON: Bonnie Steele MD ANESTHESIA: Nerve block plus general with LMA per [facility] and Dr. Monique. PREOPERATIVE NOTE: Ms. Honeycutt is a very nice 72-year-old white female from [place], [place]. She has end-stage renal disease and is on hemodialysis with a catheter. She has had failed prior attempts to create a long-term access. She is rather chronically ill and debilitated, but she is actually much better than she was month or so ago when she had her last operation. With higher hope, she is returned to the operating room today with a patent Manny brachiobasilic AV fistula in the right arm, which I created about a month ago and I planned to convert this now to a brachial artery to translocated basilic vein fistula. Under nerve block and general anesthesia, she was prepped and draped in sterile manner. I examined her with ultrasound and mapped out the course of the basilic vein and then made a long incision from the previous incision in the antecubital space up to the axilla. I exposed the basilic vein and mobilized it fully from the antecubital space and the arterial anastomosis up to near its junction with the brachial vein. Tributaries were divided between Vicryl ties and Hemoclips. One tear in the vein did require a 7-0 Prolene repair. The nerves were spared as much as possible, those several of the cutaneous nerves along the course of the basilic vein were taken. The patient was heparinized and a subcutaneous tunnel created anteriorly and much more superficially. The vein was treated with topical papaverine and the wound treated several times with gentamicin antibiotic solution. The vein was clamped just proximal to the arterial anastomosis and then a bulldog vascular clamp applied proximally. The vein was transected and then mobilized superficial to the nerves. It was then flushed and irrigated with heparinized saline and then placed in the subcutaneous tunnel under no tension. The vein was fortunately long and there was ample length for the procedure today to be done without any tension. I performed an end-to-end anastomosis just above the prior arterial anastomosis. The vein was beveled when it was initially transected and the anastomosis was performed with 2 running 7-0 Prolenes. When completed, the anastomosis was satisfactory and watertight without evidence of significant stenosis due to purse-stringing and when the clamps were released, excellent flow was immediately established in the new fistula and there was no bleeding. The patient's heparin was partially reversed with 10 mg of protamine. I irrigated the wound again with gentamicin solution and then closed it in layers with interrupted 3-0 Vicryl and running OPERATIVE REPORT [id number] PITO,DYLAN intracuticular 4-0 Monocryl. Doppler examination of the new fistula revealed good continuous pulsatile flow and also there was good pulsatile high resistance type flow in the radial artery at the wrist. The patient's skin wound was sealed and closed with Dermabond glue and dressed with Maxorb AG, Tegaderm, and Cavilon skin prep and she was then awakened and taken to the recovery room in stable condition. Blood loss was about 20 cc and unreplaced. All sponges, instruments and needles were accounted for. No drain was used and no surgical specimen was submitted for histopathology. PLAN: The patient, I believe, can be discharged today to return home and resume all of her home medications and her usual dialysis schedule. I will consult home health for some wound care to tie this through over the . She will need 3 times a week visits for the wound to be undressed, cleaned with Hibiclens, and then redressed with clean, dry sterile gauze. I have an appointment arranged for her to see me in my office the first week in September and hopefully after that will be able to discontinue her home health visits. She is given a prescription for tramadol 50 mg, she can take 1 or if necessary 2 p.o. q.4 hours p.r.n. pain. She may in addition take Tylenol 2 p.o. q.4 hours p.r.n. TRANSINT:[id number] Voice Confirmation ID: [id number] DOCUMENT ID: [id number] BONNIE STEELE MD at 1511 CC: KELSEY JUNE MD [id number] DICTATION DATE: 09/20/17 1056 UX CONSULTANT: 09/20/17 1122 [facility] [place] 09/20/17 [id number] [place] [address]
== END 2017-09-20 13:20 | disposition home or self-care (01) ==
LOC: D.OPS 05:15 → D.PAN 08:00 → D.OPS 08:00
PROVIDERS: Surgery
DX: T82.9XXA Unspecified complication of cardiac and vascular prosthetic device, implant and graft, initial encounter (principal); N18.6 End stage renal disease; Z99.2 Dependence on renal dialysis; R53.81 Other malaise; Z01.812 Encounter for preprocedural laboratory examination